=== PATIENT | male | born 1975 | race Caucasian/White ===

== ENCOUNTER 2023-02-07 09:35 | Outpatient (CLI) | payer OTHER, SELFPAY | END 2023-02-07 09:36 | disposition home or self-care (01) | PROVIDERS: PCP Family Medicine; Visit Provider Family Medicine | DX: Z00.00 Encounter for general adult medical examination without abnormal findings (principal); Z12.5 Encounter for screening for malignant neoplasm of prostate; Z13.6 Encounter for screening for cardiovascular disorders; Z13.1 Encounter for screening for diabetes mellitus | CPT/HCPCS: 80061; 82947; 84153 ==

== ENCOUNTER 2024-02-27 09:09 | Outpatient (CLI) | payer OTHER, SELFPAY | END 2024-02-27 09:10 | disposition home or self-care (01) | PROVIDERS: PCP Family Medicine; Visit Provider Family Medicine | DX: L02.412 Cutaneous abscess of left axilla (principal) | CPT/HCPCS: 87070 ==

== ENCOUNTER 2024-03-14 07:40 | Outpatient (CLI) | payer OTHER, SELFPAY | END 2024-03-14 07:41 | disposition home or self-care (01) | LOC: NFLDREF 03-16 06:11 | PROVIDERS: PCP Family Medicine; Referring Provider Family Medicine; Visit Provider Family Medicine | DX: E78.5 Hyperlipidemia, unspecified (principal) | CPT/HCPCS: 80061 ==

== ENCOUNTER 2024-03-24 07:57 | Outpatient (CLI) | payer OTHER, SELFPAY ==
--- NOTE | 2024-03-24 09:13 | W.ANESCHARGE ---
Anesthesia Charges Start Date/Time Anesthesia Start Date: 03/24/24 Anesthesia Start Time: 08:48 Stop Date/Time Anesthesia Stop Date: 03/24/24 Anesthesia Stop Time: 09:11
--- NOTE | 2024-03-24 09:26 | W.ANESCHARGE ---
Anesthesia Charges Start Date/Time Anesthesia Start Date: 03/24/24 Anesthesia Start Time: 08:48 Stop Date/Time Anesthesia Stop Date: 03/24/24 Anesthesia Stop Time: 09:11
== END 2024-03-24 07:58 | disposition home or self-care (01) ==
LOC: OP CLINIC 07:58
PROVIDERS: PCP Family Medicine; Visit Provider Internal Medicine
DX: Z12.11 Encounter for screening for malignant neoplasm of colon (principal); D12.8 Benign neoplasm of rectum
CPT/HCPCS: 00811; 45380; 88305; J2704

== ENCOUNTER 2024-08-07 07:02 | Emergency (ER) | payer BC, SELFPAY ==
[2024-08-07 07:14] VITALS: BP 160/95; PULSE 70; RESP 18; TEMP 35.7; O2SAT 98; BMI 25.1
[2024-08-07 07:45] LABS: Basophils Absolute Auto 0.03 K/uL (0.00-0.30); Basophils Percent Auto 0.5 % (0.0-3.0); Eosinophils Absolute Auto 0.06 K/uL (0.00-0.50); Eosinophils Percent Auto 1.1 % (0.0-7.0); Hematocrit 41.5 % (37.0-53.0); Hemoglobin* 13.7 gm/dL (13.5-17.5); Immature Granulocytes Abs Auto 0.01 K/uL (0.00-0.30); Immature Granulocytes Pct Auto 0.2 %; Lymphocytes Percent Auto 15.6 % (20-44); Mean Corpuscular HGB Conc 33 gm/dL (32-36); Mean Corpuscular Hemoglobin 28 pg (26-34); Mean Corpuscular Volume 85 fL (80-100); Monocytes Percent Auto 10.5 % (0.0-11.0); Neutrophils Percent Auto 72.1 % (42.0-72.0); Platelet Count* 317 K/uL (140-440); Red Blood Count 4.86 m/uL (4.30-5.90); White Blood Count* 5.64 K/uL (4.50-11.00)
[2024-08-07 07:47] LABS: Slide Review Reflex No
--- NOTE | 2024-08-07 07:56 | ED.GENADULT ---
HPI - General Adult General Chief complaint: Abdominal Pain Stated complaint: Abdominal pain, unable to urinate Time Seen by Provider: 08/07/24 07:56 History of Present Illness HPI narrative: C/O pain to left middle and lower quad pain. Started yesterday, got a little better during the day and worse at night. Also has burning into urethra. Only able to urinate drops. Last full empty of bladder was yesterday. Denies fever but had chills. 48-year-old man presenting to the emergency department with concern of left lower abdominal pain. Began yesterday and has only worsened. Has some pain radiating into his groin. Staff some dysuria. Harder to urinate. Some chills but no measured fever. No noted injury. No discharge otherwise. Not with proceeding back pain. Related Data Previous Rx's ?Medication ?Instructions ?Recorded peg 3350-electrolytes 236 240 ml PO ONCE #4,000 mL 02/25/24 gram-22.74 gram-6.74 gram-5.86 gram solution (Golytely) finasteride 5 mg tablet 5 mg PO DAILY #90 tabs 03/20/24 trazodone 100 mg tablet 200 mg (2 x 100 mg) PO .Bedtime 03/20/24 #180 tabs venlafaxine 150 mg 300 mg (2 x 150 mg) PO DAILY #180 03/20/24 capsule,extended release 24 hr caps tamsulosin 0.4 mg capsule (Flomax) 0.4 mg PO DAILY #14 caps 08/07/24 Allergies Allergy/AdvReac Type Severity Reaction Status Date / Time No Known Drug Allergies Allergy Verified 03/20/24 07:46 Review of Systems Status of ROS: Reports: 6 or more systems reviewed and unremarkable except as noted in History and below [facility] Medical History History of alcoholism ?F10.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, in remission (ICD-10) Social History What is your current living situation?: I presently have a place to live Problems where you live: no known problems In the past 12 months, utilities in danger of being shut off: no In past 12 months, lack of transportation kept you from medical appts, meetings, work, or getting things needed for daily living: no In the past 12 mos, have been you worried that your food would run out before you had money to buy more?: never true In the past 12 mos, the food you bought just didn't last and you didn't have money to buy more?: never true Smoking Status: Never smoker Do you use any of these nicotine containing products: None Second hand tobacco smoke exposure: No How often do you have a drink containing alcohol: never How often do you have six or more drinks on one occasion: Never AUDIT-C Alcohol total score: 0 Non-prescribed substance use: denies use How often does anyone, including family, friends and others, physically hurt you: never How often does anyone, including family, friends and others, insult or talk down to you: never How often does anyone, including family, friends and others, threaten you with harm: never How often does anyone, including family, friends and others, scream or curse at you: never service: No Exam Narrative: Exam Narrative: Pleasant. Clearly uncomfortable. Find him initially standing but bent over. Breathing easily. Heart is in regular rate and rhythm. Abdomen is soft. Sore to palpation in the left mid abdomen. Genitourinary exam not done. Const: Vital Signs, click to edit/add: Vital Signs - 24 hr 08/07/24 07:14 Temperature 96.2 F L Pulse Rate [Left P ulse Oximeter] 70 Respiratory Rate 18 Blood Pressure [Ri ght Upper Arm] 160/95 H Pulse Oximetry 98 Oxygen Delivery Me thod Room Air Documenting provider has reviewed patient's vital signs: yes Course Vital Signs Vital signs: Initial Vital Signs Temperature 96.2 F L 08/07/24 07:14 Temperature Source Temporal Artery Scan 08/07/24 07:14 Pulse Rate 70 08/07/24 07:14 Pulse Rhythm Regular 08/07/24 07:14 Pulse Strength 3+ Normal 08/07/24 07:14 Respiratory Rate 18 08/07/24 07:14 Blood Pressure 160/95 H 08/07/24 07:14 Blood Pressure Mean 116 H 08/07/24 07:14 Blood Pressure Position Sitting 08/07/24 07:14 Pulse Oximetry 98 08/07/24 07:14 Oxygen Delivery Method Room Air 08/07/24 07:14 Vital Signs Temperature 96.2 F L 08/07/24 07:14 Pulse Rate 70 08/07/24 07:14 Respiratory Rate 18 08/07/24 07:14 Blood Pressure 160/95 H 08/07/24 07:14 Pulse Oximetry 98 08/07/24 07:14 Oxygen Delivery Method Room Air 08/07/24 07:14 Temperature 96.2 F L 08/07/24 07:14 Pulse Rate 70 08/07/24 07:14 Respiratory Rate 18 08/07/24 07:14 Blood Pressure 160/95 H 08/07/24 07:14 Pulse Oximetry 98 08/07/24 07:14 Oxygen Delivery Method Room Air 08/07/24 07:14 Medications Administered Medications: Discontinued Medications Generic Name Dose Route Start Last Admin Trade Name Merlyn PRN Reason Stop Dose Admin Ketorolac Tromethamine 30 mg 08/07/24 08:00 08/07/24 08:14 Ketorolac 30 Mg/Ml Inj IVP 08/07/24 08:01 30 mg ONCE ONE Administration Morphine Sulfate 4 mg 08/07/24 08:00 08/07/24 08:17 Morphine 4 Mg/Ml Inj IVP 08/07/24 08:01 4 mg ONCE ONE Administration Tamsulosin HCl 0.4 mg 08/07/24 08:56 08/07/24 09:25 Tamsulosin Hcl 0.4 Mg Capsule PO 08/07/24 08:57 0.4 mg ONCE ONE Administration Medical Decision Making MDM Narrative Medical decision making narrative: I would suspect ureteral stone and colic. Will evaluate though for other etiology. Possibly diverticulitis, urinary tract infection otherwise. Does not appear to be radicular back pain. Move fairly quickly I think to imaging as this is quite atypical for him. Does not appear to be obstructed nor does he feel that he is constipated. Urinary retention I suppose is possible as well. IVs initiated. Given ketorolac and morphine for more immediate relief. Later tamsulosin. Labs are reassuring. Finally urinalysis obtained which did confirm 2+ blood on dip. By this point I had already seen CT imaging. CT imaging independently reviewed by me with an approximately 2 mm stone near the left ureteral vesicular junction or actually in the bladder. Mild left-sided hydronephrosis. I think this is consistent with presentation Markedly improved with treatment as above. Radiology over-read below Indication: Left-sided abdominal pain difficulty urinating Technique: Volumetric multidetector CT images of the abdomen and pelvis were without the administration of intravenous contrast. Comparison: None available. Findings: The lung bases are clear. The liver is normal in attenuation without intrahepatic biliary ductal dilatation. The gallbladder is unremarkable without evidence of radiopaque calculus. There is no significant common biliary ductal dilatation or abrupt cut off. The spleen is normal in attenuation and size. The stomach and duodenum are grossly unremarkable. The pancreas is normal in attenuation without significant atrophy. The adrenal glands are unremarkable. There is left-sided hydronephrosis and hydroureter with demonstration of a 1.9 millimeter calculus at the left ureterovesicular junction. There is moderate stool seen throughout the colon. There is minimal nonspecific fluid seen within the central small bowel. The appendix is unremarkable. There is no significant mesenteric, retroperitoneal, or pelvic sidewall lymph nodes. The aorta is nonaneurysmal. There is no significant atherosclerotic disease appreciated. The solid pelvic viscera are grossly unremarkable. There is no free fluid or free air. The anterior abdominal wall is intact without significant hernias. The lumbar vertebral body heights are grossly maintained with minimal anterolisthesis of L5 on S1. Impression: 1. Left-sided hydronephrosis and hydroureter with demonstration of a 1.9 millimeter calculus at the left ureterovesicular junction. See patient discharge plan for further discussion Generally stay well hydrated with water. Can take up to 800 mg of ibuprofen for pain. Am prescribing also Percocet, and opiate, and Zofran for nausea from [facility]. Sending in a prescription of Flomax which might be helpful for spasming pain. Take this daily until you think this stone is passed. Any of these medications can be combined Would consider straining your urine over this next week to see if you can retrieve some stone that might be helpful for analysis/further recommendations. Could take this into your clinic. Medical Records Medical records reviewed: Yes I reviewed the patient's medical records Lab Data Lab results reviewed: Yes I reviewed the patient's lab results Labs: Lab Results 08/07/24 08/07/24 08/07/24 Range/Units 07:37 07:37 07:37 WBC (4.50-11.00) K/uL RBC (4.30-5.90) m/uL Hgb (13.5-17.5) gm/dL Hct (37.0-53.0) % MCV (80-100) fL MCH (26-34) pg MCHC (32-36) gm/dL RDW Coeff of Radha (11.5-15.5) % Plt Count (140-440) K/uL Neut % (Auto) (42.0-72.0) % Lymph % (Auto) (20-44) % Benson % (Auto) (0.0-11.0) % Eos % (Auto) (0.0-7.0) % Baso % (Auto) (0.0-3.0) % Neut # (Auto) (1.7-7.0) K/uL Lymph # (Auto) (0.90-2.90) K/uL Benson # (Auto) (0.00-0.90) K/UL Eos # (Auto) (0.00-0.50) K/uL Baso # (Auto) (0.00-0.30) K/uL Abs Immat Gran (auto) (0.00-0.30) K/uL Imm/Tot Granulo (auto) % Sodium (135-149) mmol/L Potassium (3.6-5.1) mmol/L Chloride (96-114) mmol/L Carbon Dioxide (20-32) mmol/L Anion Gap (7-15) mEq/L BUN (5-24) mg/dL Creatinine (0.5-1.5) mg/dL Estimated Creat Clear Estimated GFR ml/min Glucose (60-115) mg/dL Calcium (8.4-10.6) mg/dL Total Bilirubin (0.1-1.5) mg/dL AST (12-35) U/L ALT (4-50) U/L Alkaline Phosphatase (40-150) U/L Total Protein (6.0-8.3) g/dL Albumin (3.3-5.0) g/dL Lipase Urine Color Cancelled Yellow Urine Appearance Cancelled Clear Urine pH Cancelled Ur Specific [place] Urine Protein Urine Glucose (UA) Urine Ketones Urine Blood Urine Nitrite Urine Bilirubin Urine Urobilinogen Ur Leukocyte Esterase Urine RBC (0-2) Urine WBC (0-5) Ur Squamous Epith Cells (None-Few) Urine Bacteria (None) 08/07/24 08/07/24 08/07/24 Range/Units 07:37 07:37 07:37 WBC (4.50-11.00) K/uL RBC (4.30-5.90) m/uL Hgb (13.5-17.5) gm/dL Hct (37.0-53.0) % MCV (80-100) fL MCH (26-34) pg MCHC (32-36) gm/dL RDW Coeff of Radha (11.5-15.5) % Plt Count (140-440) K/uL Neut % (Auto) (42.0-72.0) % Lymph % (Auto) (20-44) % Benson % (Auto) (0.0-11.0) % Eos % (Auto) (0.0-7.0) % Baso % (Auto) (0.0-3.0) % Neut # (Auto) (1.7-7.0) K/uL Lymph # (Auto) (0.90-2.90) K/uL Benson # (Auto) (0.00-0.90) K/UL Eos # (Auto) (0.00-0.50) K/uL Baso # (Auto) (0.00-0.30) K/uL Abs Immat Gran (auto) (0.00-0.30) K/uL Imm/Tot Granulo (auto) % Sodium (135-149) mmol/L Potassium (3.6-5.1) mmol/L Chloride (96-114) mmol/L Carbon Dioxide (20-32) mmol/L Anion Gap (7-15) mEq/L BUN (5-24) mg/dL Creatinine (0.5-1.5) mg/dL Estimated Creat Clear Estimated GFR ml/min Glucose (60-115) mg/dL Calcium (8.4-10.6) mg/dL Total Bilirubin (0.1-1.5) mg/dL AST (12-35) U/L ALT (4-50) U/L Alkaline Phosphatase (40-150) U/L Total Protein (6.0-8.3) g/dL Albumin (3.3-5.0) g/dL Lipase Urine Color Urine Appearance Urine pH 6.0 Ur Specific [place] Cancelled <= 1.005 Urine Protein Cancelled Negative Urine Glucose (UA) Cancelled Urine Ketones Urine Blood Urine Nitrite Urine Bilirubin Urine Urobilinogen Ur Leukocyte Esterase Urine RBC (0-2) Urine WBC (0-5) Ur Squamous Epith Cells (None-Few) Urine Bacteria (None) 08/07/24 08/07/24 08/07/24 Range/Units 07:37 07:37 07:37 WBC (4.50-11.00) K/uL RBC (4.30-5.90) m/uL Hgb (13.5-17.5) gm/dL Hct (37.0-53.0) % MCV (80-100) fL MCH (26-34) pg MCHC (32-36) gm/dL RDW Coeff of Radha (11.5-15.5) % Plt Count (140-440) K/uL Neut % (Auto) (42.0-72.0) % Lymph % (Auto) (20-44) % Benson % (Auto) (0.0-11.0) % Eos % (Auto) (0.0-7.0) % Baso % (Auto) (0.0-3.0) % Neut # (Auto) (1.7-7.0) K/uL Lymph # (Auto) (0.90-2.90) K/uL Benson # (Auto) (0.00-0.90) K/UL Eos # (Auto) (0.00-0.50) K/uL Baso # (Auto) (0.00-0.30) K/uL Abs Immat Gran (auto) (0.00-0.30) K/uL Imm/Tot Granulo (auto) % Sodium (135-149) mmol/L Potassium (3.6-5.1) mmol/L Chloride (96-114) mmol/L Carbon Dioxide (20-32) mmol/L Anion Gap (7-15) mEq/L BUN (5-24) mg/dL Creatinine (0.5-1.5) mg/dL Estimated Creat Clear Estimated GFR ml/min Glucose (60-115) mg/dL Calcium (8.4-10.6) mg/dL Total Bilirubin (0.1-1.5) mg/dL AST (12-35) U/L ALT (4-50) U/L Alkaline Phosphatase (40-150) U/L Total Protein (6.0-8.3) g/dL Albumin (3.3-5.0) g/dL Lipase Urine Color Urine Appearance Urine pH Ur Specific [place] Urine Protein Urine Glucose (UA) Negative Urine Ketones Cancelled Negative Urine Blood Cancelled 2+ A Urine Nitrite Cancelled Urine Bilirubin Urine Urobilinogen Ur Leukocyte Esterase Urine RBC (0-2) Urine WBC (0-5) Ur Squamous Epith Cells (None-Few) Urine Bacteria (None) 08/07/24 08/07/24 08/07/24 Range/Units 07:37 07:37 07:37 WBC (4.50-11.00) K/uL RBC (4.30-5.90) m/uL Hgb (13.5-17.5) gm/dL Hct (37.0-53.0) % MCV (80-100) fL MCH (26-34) pg MCHC (32-36) gm/dL RDW Coeff of Radha (11.5-15.5) % Plt Count (140-440) K/uL Neut % (Auto) (42.0-72.0) % Lymph % (Auto) (20-44) % Benson % (Auto) (0.0-11.0) % Eos % (Auto) (0.0-7.0) % Baso % (Auto) (0.0-3.0) % Neut # (Auto) (1.7-7.0) K/uL Lymph # (Auto) (0.90-2.90) K/uL Benson # (Auto) (0.00-0.90) K/UL Eos # (Auto) (0.00-0.50) K/uL Baso # (Auto) (0.00-0.30) K/uL Abs Immat Gran (auto) (0.00-0.30) K/uL Imm/Tot Granulo (auto) % Sodium (135-149) mmol/L Potassium (3.6-5.1) mmol/L Chloride (96-114) mmol/L Carbon Dioxide (20-32) mmol/L Anion Gap (7-15) mEq/L BUN (5-24) mg/dL Creatinine (0.5-1.5) mg/dL Estimated Creat Clear Estimated GFR ml/min Glucose (60-115) mg/dL Calcium (8.4-10.6) mg/dL Total Bilirubin (0.1-1.5) mg/dL AST (12-35) U/L ALT (4-50) U/L Alkaline Phosphatase (40-150) U/L Total Protein (6.0-8.3) g/dL Albumin (3.3-5.0) g/dL Lipase Urine Color Urine Appearance Urine pH Ur Specific [place] Urine Protein Urine Glucose (UA) Urine Ketones Urine Blood Urine Nitrite Negative Urine Bilirubin Cancelled Negative Urine Urobilinogen Cancelled 0.2 Ur Leukocyte Esterase Cancelled Urine RBC (0-2) Urine WBC (0-5) Ur Squamous Epith Cells (None-Few) Urine Bacteria (None) 08/07/24 08/07/24 Range/Units 07:37 07:40 WBC 5.64 (4.50-11.00) K/uL RBC 4.86 (4.30-5.90) m/uL Hgb 13.7 (13.5-17.5) gm/dL Hct 41.5 (37.0-53.0) % MCV 85 (80-100) fL MCH 28 (26-34) pg MCHC 33 (32-36) gm/dL RDW Coeff of Radha 12.0 (11.5-15.5) % Plt Count 317 (140-440) K/uL Neut % (Auto) 72.1 H (42.0-72.0) % Lymph % (Auto) 15.6 L (20-44) % Benson % (Auto) 10.5 (0.0-11.0) % Eos % (Auto) 1.1 (0.0-7.0) % Baso % (Auto) 0.5 (0.0-3.0) % Neut # (Auto) 4.10 (1.7-7.0) K/uL Lymph # (Auto) 0.90 (0.90-2.90) K/uL Benson # (Auto) 0.60 (0.00-0.90) K/UL Eos # (Auto) 0.06 (0.00-0.50) K/uL Baso # (Auto) 0.03 (0.00-0.30) K/uL Abs Immat Gran (auto) 0.01 (0.00-0.30) K/uL Imm/Tot Granulo (auto) 0.2 % Sodium 134 L (135-149) mmol/L Potassium 3.8 (3.6-5.1) mmol/L Chloride 100 (96-114) mmol/L Carbon Dioxide 28 (20-32) mmol/L Anion Gap 6 L (7-15) mEq/L BUN 13 (5-24) mg/dL Creatinine 1.1 (0.5-1.5) mg/dL Estimated Creat Clear 88.42 Estimated GFR 83 ml/min Glucose 114 (60-115) mg/dL Calcium 9.1 (8.4-10.6) mg/dL Total Bilirubin 0.4 (0.1-1.5) mg/dL AST 24 (12-35) U/L ALT 18 (4-50) U/L Alkaline Phosphatase 53 (40-150) U/L Total Protein 6.4 (6.0-8.3) g/dL Albumin 4.3 (3.3-5.0) g/dL Lipase Cancelled Urine Color Urine Appearance Urine pH Ur Specific [place] Urine Protein Urine Glucose (UA) Urine Ketones Urine Blood Urine Nitrite Urine Bilirubin Urine Urobilinogen Ur Leukocyte Esterase Negative Urine RBC 0-2 (0-2) Urine WBC 0-2 (0-5) Ur Squamous Epith Cells None (None-Few) Urine Bacteria Few A (None) Discharge Plan Discharge Clinical Impression: Left ureteral calculus, Ureteral colic Patient Disposition: Home, Self-Care Condition: Improved Additional Instructions: Generally stay well hydrated with water. Can take up to 800 mg of ibuprofen for pain. Am prescribing also Percocet, and opiate, and Zofran for nausea from [facility]. Sending in a prescription of Flomax which might be helpful for spasming pain. Take this daily until you think this stone is passed. Any of these medications can be combined Would consider straining your urine over this next week to see if you can retrieve some stone that might be helpful for analysis/further recommendations. Could take this into your clinic. Prescriptions: New tamsulosin [Flomax] 0.4 mg capsule 0.4 mg PO DAILY Qty: 14 0RF No Action finasteride 5 mg tablet 5 mg PO DAILY Qty: 90 3RF trazodone 100 mg tablet 200 mg PO .Bedtime Qty: 180 3RF venlafaxine 150 mg capsule,extended release 24hr 300 mg PO DAILY Qty: 180 3RF peg 3350-electrolytes [Golytely] 236-22.74-6.74 -5.86 gram recon soln 240 ml PO ONCE Qty: 4000 0RF Rx Instructions: until fecal effluent is clear Follow Up/Referrals: Toney Guerrero MD [Primary Care Provider] - Stand Alone Forms: MyHealth Info Instructions
[2024-08-07 07:58] LABS: Albumin* 4.3 g/dL (3.3-5.0); Chloride* 100 mmol/L (96-114)
[2024-08-07 07:59] LABS: Potassium* 3.8 mmol/L (3.6-5.1); Sodium* 134 mmol/L (135-149)
--- NOTE | 2024-08-07 08:00 | CRLHL7_ITS ---
For Patients: As a result of the Century Cures Act, medical imaging exams and procedure reports are released immediately into your electronic medical record. You may view this report before your referring provider. If you have questions, please contact your health care provider. Indication: Left-sided abdominal pain difficulty urinating Technique: Volumetric multidetector CT images of the abdomen and pelvis were without the administration of intravenous contrast. Comparison: None available. Findings: The lung bases are clear. The liver is normal in attenuation without intrahepatic biliary ductal dilatation. The gallbladder is unremarkable without evidence of radiopaque calculus. There is no significant common biliary ductal dilatation or abrupt cut off. The spleen is normal in attenuation and size. The stomach and duodenum are grossly unremarkable. The pancreas is normal in attenuation without significant atrophy. The adrenal glands are unremarkable. There is left-sided hydronephrosis and hydroureter with demonstration of a 1.9 millimeter calculus at the left ureterovesicular junction. There is moderate stool seen throughout the colon. There is minimal nonspecific fluid seen within the central small bowel. The appendix is unremarkable. There is no significant mesenteric, retroperitoneal, or pelvic sidewall lymph nodes. The aorta is nonaneurysmal. There is no significant atherosclerotic disease appreciated. The solid pelvic viscera are grossly unremarkable. There is no free fluid or free air. The anterior abdominal wall is intact without significant hernias. The lumbar vertebral body heights are grossly maintained with minimal anterolisthesis of L5 on S1. Impression: 1. Left-sided hydronephrosis and hydroureter with demonstration of a 1.9 millimeter calculus at the left ureterovesicular junction. Please note that all CT scans at this facility use dose modulation, iterative reconstruction, and/or weight-based dosing when appropriate to reduce radiation dose to as low as reasonably achievable. Dictated by Enrique Mane MD @ 08/07/2024 8:45:29 AM (Electronically Signed)
[2024-08-07 08:01] LABS: Alkaline Phosphatase* 53 U/L (40-150); Anion Gap 6 mEq/L (7-15); Aspartate Amino Transferase* 24 U/L (12-35); Bilirubin Total* 0.4 mg/dL (0.1-1.5); Blood Urea Nitrogen* 13 mg/dL (5-24); Carbon Dioxide* 28 mmol/L (20-32); Creatinine* 1.1 mg/dL (0.5-1.5); Est. Creatinine Clearance* 88.42; Estimated Glomerular Filt Rate 83 ml/min; Total Protein* 6.4 g/dL (6.0-8.3)
[2024-08-07 08:02] LABS: Alanine Aminotransferase* 18 U/L (4-50); Calcium* 9.1 mg/dL (8.4-10.6); Glucose* 114 mg/dL (60-115)
[2024-08-07] MEDS: KETOROLAC 30 MG/ML inj IVP (08:14)
[2024-08-07] MEDS: MORPHINE 4 MG/ML INJ IVP (08:17)
[2024-08-07 08:24] LABS: Appearance Urine Clear (Clear); Bilirubin Urine Negative (Negative); Color Urine Yellow (Yellow); Glucose Urine Negative (Negative); Ketones Urine Negative (Negative)
[2024-08-07 08:25] LABS: Blood Urine 2+ (Negative); Leukocyte Esterase Urine Negative (Negative); Nitrite Urine Negative (Negative); Protein Urine Negative (Negative); Specific Gravity Urine <= 1.005 (1.000-1.030); Urobilinogen Urine 0.2 (0.2-1.0)
[2024-08-07 08:28] LABS: Bacteria Urine Few; RBC Urine 0-2 (0-2); WBC Urine 0-2 (0-5)
[2024-08-07] MEDS: TAMSULOSIN HCL 0.4 MG CAPSULE PO (09:25)
== END 2024-08-07 09:31 | disposition home or self-care (01) ==
PROVIDERS: Emergency Provider Family Medicine; PCP Family Medicine
DX: N20.1 Calculus of ureter (principal)
CPT/HCPCS: 36415; 51798; 74176; 80048; 80053; 81001; 81003; 83690; 85025; 87086; 96374; 96375; 99284; A9270; J1885; J2270

== ENCOUNTER 2025-06-24 07:31 | Outpatient (CLI) | payer BC, SELFPAY | END 2025-06-24 07:32 | disposition home or self-care (01) | LOC: NFLDREF 06-29 18:48 | PROVIDERS: PCP Family Medicine; Referring Provider Family Medicine; Visit Provider Family Medicine | DX: E78.5 Hyperlipidemia, unspecified (principal) | CPT/HCPCS: 80053; 80061; G0103 ==